=== PATIENT | female | born 1975 | race Caucasian/White ===

== ENCOUNTER → 2018-03-10 14:47 | Outpatient (CLI) | payer OTHER, SELFPAY ==
[2018-02-20 10:43] VITALS: BMI 25.9
--- NOTE | 2018-03-10 14:48 | BI_ITS ---
MAMMOGRAPHY - BILATERAL SCREENING REASON FOR EXAM: Female, 42 years old. Routine annual screening examination. PERTINENT HISTORY: Non-contributory. TECHNIQUE: Digital bilateral breast rima (3D mammographic acquisition) in the CC and MLO projections. 2-D mediolateral oblique (MLO) and craniocaudad (CC) views of both breasts were obtained. CAD: Full Field Digital Mammography with Computer Added Detection was performed. COMPARISON: Comparison is made with prior study dated August 12, 2016 and August 01, 2014. FINDINGS: Breast Composition: The breasts are heterogeneously dense, which may obscure small masses. There are no dominant masses or suspicious calcifications. Stable bilateral axillary lymph nodes. No other significant abnormalities are identified. There has been no significant change since the prior study. BI/SCREENING MAMM (CAD), BILAT IMPRESSION: Stable bilateral screening mammogram. Yearly follow-up mammogram recommended. (A) ASSESSMENT CATEGORY: BIRADS Category 2: Benign. A letter regarding these results will be sent to the patient by the facility within 30 days. Approximately 10% of breast cancers are not detected by mammography. A normal mammogram should not delay biopsy of a clinically suspicious abnormality. [id number] Electronically Signed: Ovidio Vaughan MD at 15:52 EST Tel [phone], Service support ,
--- OUTSIDE RECORDS SUMMARY | 2018-05-05 14:11 | XMS RPT_ITS ---
:1975 Author Organization [facility] Care Team Providers Name Role Phone Suman Contreras Attending Unavailable Beny Quigley Referring Unavailable Beny Quigley Primary Care Unavailable Umair Arias Attending Unavailable Umair Arias Referring Unavailable Beny Quigley Primary Care Unavailable Abdirizak Pritchard Attending Unavailable Beny Quigley Referring Unavailable PROBLEMS PROBLEMS DATE TYPE CONDITION / CODE ATTENDING STATUS SOURCE 02/20/2018 Unknown J32.9 - Chronic Abdirizak Pritchard Active [facility] sinusitis, Community unspecified / Hospital J32.9(ICD-10) Repository 05/27/2017 Unknown H60.90 - Suman Contreras Active [facility] otitis externa, Hospital unspecified ear / Repository H60.90(ICD-10) 05/27/2017 Unknown H60.313 - Diffuse Suman Contreras Active [facility] otitis externa, Community bilateral / Hospital H60.313(ICD-10) Repository PROCEDURES PROCEDURES No Procedure Records FoundRESULTS RESULTS SCREENING MAMM (CAD), Observed: 03/10/2018 Status: F Source: [facility] BILAT 2:48 PM [facility] REPOSITORY [facility] Imaging Services [address] [place] [address] SCREENING MAMM (CAD), BILAT MR#: [id number] Acct: [id number] Name: MAEVE WELLS Rep #: [id number] : 1975 F 42 From: Ovidio Vaughan MD PCP: Beny Quigley MD Status: [facility] Study: SCREENING MAMM (CAD), BILAT Date of Exam: 03/10/18 Exam# [id number] Ordering Dr: Umair Arias MD MAMMOGRAPHY - BILATERAL SCREENING REASON FOR EXAM: Female, 42 years old. Routine annual screening examination. PERTINENT HISTORY: Non-contributory. TECHNIQUE: Digital bilateral breast rima (3D mammographic acquisition) in the CC and MLO projections. 2-D mediolateral oblique (MLO) and craniocaudad (CC) views of both breasts were obtained. CAD: Full Field Digital Mammography with Computer Added Detection was performed. COMPARISON: Comparison is made with prior study dated August 12, 2016 and August 01, 2014. FINDINGS: Breast Composition: The breasts are heterogeneously dense, which may obscure small masses. There are no dominant masses or suspicious calcifications. Stable bilateral axillary lymph nodes. No other significant abnormalities are identified. There has been no significant change since the prior study. BI/SCREENING MAMM (CAD), BILAT IMPRESSION: Stable bilateral screening mammogram. Yearly follow-up mammogram recommended. (A) ASSESSMENT CATEGORY: BIRADS Category 2: Benign. A letter regarding these results will be sent to the patient by the facility within 30 days. Approximately 10% of breast cancers are not detected by mammography. A normal mammogram should not delay biopsy of a clinically suspicious abnormality. [id number] Electronically Signed: Ovidio Vaughan MD at 15:52 EST Tel [phone], Service support , CC: Umair Arias MD; Beny Quigley MD Supervisor Twisting Department: Signed URGENT CARE VISIT Observed: 02/20/2018 Status: F Source: [facility] REPORT 10:59 AM [facility] [address] [place] [address] [address] [place] [address] OFFICE VISIT Date of Service: 02/20/18 MR#: [id number] Acct: [id number] Name: MAEVE WELLS Rep #: [id number] : 1975 Provider: Abdirizak GUADALUPE Age/Sex: 42/F Location: [facility] Status: Signed Intake Vital Signs02/20/18 Height 5 ft 1 in Intake Visit Reasons: Cough Chief Complaint: Facial pressure, postnasal drip, hoarse voice, cough Allergies No Known Allergies Allergy (Unverified 02/20/18 10:44) Medications amoxicillin 500 mg capsule 1,000 mg PO BID 10 Days #40 cap 02/20/18 [Rx Confirmed 02/20/18] loratadine 10 mg tablet 10 mg PO DAILY 02/20/18 [History Confirmed 02/20/18] multivitamin capsule 1 cap PO DAILY 02/20/18 [History Confirmed 02/20/18] valacyclovir 1 gram tablet PO 4 Days #12 tab 02/20/18 [History Confirmed 02/20/18] [facility] Medical History Melanoma (Acute) Surgical History [place] teeth extracted (Acute) D AND C (Acute) History of tonsillectomy (Acute) Hx of section (Acute) Family History Other Diabetes Social History Smoking Status: Never smoker alcohol intake: never HPI HPI Chief Complaint: Facial pressure, postnasal drip, hoarse voice, cough Details: MAEVE WELLS, is a 42 F who presents to the office today for initial evaluation approximately 2-3-week history of progressively worsening facial pressure, postnasal drip, hoarse voice, cough. Additionally, she notes occasional chills particularly over the last 3-5 days, though no complaints of fever, sweats, rash, chest pain/shortness of breath/difficulty breathing. She is a non-smoker, noting no other members in household with similar complaints. She has tried [id number]-fxd-[id number] Claritin to assist with symptoms, noting this no longer helps. She notes no other associated symptoms and no other alleviating or aggravating factors. ROS Const Constitutional: No other (ROS negative x10 other than as noted above) Exam Const General: cooperative, healthy appearing, no acute distress, uncomfortable Nutritional Appearance: average body habitus Orientation: alert, awake, oriented x3 HENMT Head: normal to inspection Ears: hearing grossly normal bilaterally, external ears normal, TM's normal bilaterally, EAC's normal Nose: external nose normal, nares normal, septum normal, no nasal discharge Face and sinus: normal facial exam, face symmetric, sinus tenderness frontal Mouth: oral mucosae normal, lip normal, tongue normal Teeth and gingiva: gingiva normal, dentition normal Throat: uvula midline, posterior oropharynx normal, postnasal drainage (Purulent) Eyes General: appearance normal, both eyes and all related structures Neck Neck: normal visual inspection, full ROM, no meningeal signs, supple, lymphadenopathy (Bilateral anterior cervical node swelling, nontender to palpation) Neck mass: No Thyroid: thyroid normal Chest Chest palpation AND inspection: normal inspection of the chest Resp Effort AND Inspection: normal respiratory effort, able to speak in complete sentences, symmetric chest movement, no cough (No cough appreciated during today's exam) Auscultation: Bilateral: Clear to Auscultation Cardio Palpation: normal PMI Rate: regular rate Rhythm: regular rhythm Heart Sounds: S1 normal, S2 normal, no gallops, no murmurs, no rubs Pulses: radial pulses present GI Inspection: normal to inspection Palpation: soft, no hepatosplenomegaly Skin General: no rashes or lesions noted Neuro General: alert, awake, oriented x3, gait normal Cognition: normal cognition Speech: speech normal Gait: normal gait Motor: muscle tone normal throughout Sensory Exam: no sensory deficits noted Psych Appearance: grossly normal Mental Status: mental status grossly normal Mood: congruent mood Affect: normal affect Speech and Movement: speech and movement normal Attitude: cooperative Thought Process: normal Thought Content: normal Judgment: judgment good Assessment AND Plan Problems 1. Sinusitis J32.9 Plan Amoxicillin as prescribed today. Clear fluids, rest, Advil/Tylenol, warm facial compresses as needed as instructed today. Avoid tobacco smoke exposure. Follow-up with PCP in 3-5 days should symptoms not improved, sooner should symptoms worsen or any other concerns develop. Patient states acknowledging understanding all the above. This note was generated with [employer] dictation software. It may contain incorrect words, spelling, and punctuation that were not noted in checking the note before signing. Medications New: Coding Level of Care Code Off vis,est,level 3 Diagnoses Sinusitis J32.9 02/20/18 1059 <Electronically signed by Abdirziak GUADALUPE> Date Abdirizak GUADALUPE Cosigner Signature: Date (if applicable) CC: URGENT CARE VISIT Observed: 05/27/2017 Status: F Source: [place] REPORT 2:27 PM [facility]ITORY [facility] [address] [place], [place] [id number] OFFICE VISIT Date of Service: 05/27/17 MR#: [id number] Acct: [id number] Name: MAEVE WELLS Rep #: [id number] : 1975 Provider: Suman GUADALUPE Age/Sex: 41/F Location: [facility] [place] Status: Signed Intake Vital Signs05/27/17 Height 5 ft 05/27/17 Weight: 132 lb 05/27/17 Body Mass Index (BMI) 25.7 05/27/17 Blood Pressure 104/62 05/27/17 Blood Pressure Location Lt brachial 05/27/17 Blood Pressure Position Sitting Intake Visit Reasons: EAR ACHE Is patient in pain?: Yes Allergies No Known Allergies Allergy (Unverified 05/27/17 14:08) Medications ofloxacin 0.3 % ear drops 10 drp OTIC QDAY 7 Days #10 ml 05/27/17 [Rx Confirmed 05/27/17] PFSH Medical History Melanoma (Acute) Surgical History D AND C (Acute) History of tonsillectomy (Acute) Hx of section (Acute) Social History Smoking Status: Never smoker alcohol intake: never HPI HPI Details: MAEVE WELLS, is a 41 F who presents to the office today for bilateral ear pain and itching with right being worse than left. Patient states that she has had this pain for the past 2-3 days and has been using Q-tips on both of the ears. She denies hearing change or loss. No otorrhea. No fever, chills, sweats. No nausea, vomiting, diarrhea. No other associated symptoms or alleviating/aggravating factors. ROS Const Constitutional: No chills, fever(s), fatigue or abnormal sleep pattern ENT ENT: Positive for ear pain; no ear discharge, nasal congestion, nasal discharge or sore throat Resp Respiratory: No shortness of breath or chest congestion Cardio Cardiology: No chest pain at rest, chest pain with exertion or shortness of breath Skin Skin: No wounds or lesions Neuro Neurology: No behavioral changes or confusion Psych Psychiatric: No behavioral changes, No confusion, No abnormal sleep pattern Endo Endocrine: No fatigue Exam Const General: cooperative, healthy appearing [facility] Head: normocephalic, atraumatic Ears: hearing grossly normal bilaterally, EAC abnormal erythema bilaterally, edema on the right and EAC tenderness on the right Nose: external nose normal Face and sinus: face symmetric, normal facial exam Throat: posterior oropharynx normal Eyes General: appearance normal, both eyes and all related structures Pupils: PERRL Resp Effort AND Inspection: normal respiratory effort Auscultation: Bilateral: Clear to Auscultation Cardio Rate: regular rate Rhythm: regular rhythm Heart Sounds: S1 normal, S2 normal Skin General: no rashes or lesions noted Neuro General: alert, CN's II-XI intact bilaterally Psych Appearance: grossly normal Mental Status: mental status grossly normal Assessment AND Plan Problems 1. Acute diffuse otitis externa of both ears H60.313 Status Acute Plan Encouraged to get plenty of rest, drink lots of clear liquids, and use Tylenol or Ibuprofen (unless contraindicated) for fever and comfort. Patient also educated on other symptomatic management techniques. To be seen in 7-10 days if no improvement; sooner if worsening of symptoms. Patient advised of potential red flags when appropriate report to the ED. Patient verbalized understanding of all the above. This note was generated with [employer] dictation software. It may contain incorrect words, spelling, and punctuation that were not noted in checking the note before signing. Medications New: Coding Level of Care Code Off vis,new,level 3 Diagnoses Acute diffuse otitis externa of both ears H60.313 Otitis externa type: diffuse Chronicity: acute Laterality: bilateral 05/27/17 1427 <Electronically signed by Suman GUADLAUPE> Date Suman GUADALUPE Cosigner Signature: Date (if applicable) CC: ALLERGIES ALLERGIES DATE TYPE / CODE NAME / CODE REACTION SEVERITY SOURCE 02/20/2018 Drug No Known Unknown [facility] Allergy/4160 Allergies/F00 Hospital 22984(SNOMED [id number](RXNOR Repository CT) M) ENCOUNTERS ENCOUNTERS ADMIT/DISCHARGE ACCOUNT ADMITTING ENCOUNTER LOCATION SOURCE NUMBER CLASS 03/10/2018 [id number] Ambulatory [facility] ing:OPBI Repository 02/20/2018/ [id number] Ambulatory [facility]Building:[facility] [place] Repository 05/27/2017/ [id number] Ambulatory BMSBuilding:[facility] [address] 4 [place] Repository PAYERS PAYERS ENCOUNTER GUARANTOR PAYER SUBSCRIBER SOURCE 03/10/2018 MAEVE [id number] Primary MAEVE CASTROB: [place] [address] [facility] Insurance:[facility]ICAL [id number] [address]Exx: [phone] Number: Repository [phone] (XX) [id number] Date:[id number] [place] [id number]: 03/10/2018 Secondary NOT GIVENUNK [facility] Insurance:SELF PAY [facility] Number: Effective Repository Date:2017-12-29 02/20/2018 MAEVE Han [id number] Primary MAEVE CASTROB: [facility] Insurance:MEDICAL [id number] [address]Igb: (330) Number: Repository [phone] () [id number] Date:3356-06-19[address], [place] [address]SV: 02/20/2018 Secondary NOT GIVENUNK [facility] Insurance:SELF PAY [facility] Number: Effective Repository Date:2018-02-20 05/27/2017 MAEVE [id number] W Primary Insurance:[facility] MAEVE BAEZA: [place] [facility] [id number] [id number]: [phone]) Number: Repository [phone] () [id number] Date:[id number] [address]QF: CHECK WEBSITE 05/27/2017 Secondary NOT GIVENUNK [facility] Insurance:SELF PAY [facility] Number: Effective Repository Date:2017-05-27
== END ==
PROVIDERS: Family Provider Family Medicine; PCP Family Medicine; Referring Provider Obstetrics & Gynecology; Visit Provider Obstetrics & Gynecology
DX: Z12.31 Encounter for screening mammogram for malignant neoplasm of breast (principal)
CPT/HCPCS: 77063; 77067

== ENCOUNTER → 2018-10-20 14:25 | Outpatient (CLI) | payer OTHER, SELFPAY ==
[2018-10-20 15:46] LABS: Absolute Lymphocyte Count 1.83 X10^3/ul (0.83-4.51); Absolute Neutrophil Count 4.4 X10^3/uL (2.0-7.7); Basophil# 0.05 X10^3/uL; Basophil% 0.7 % (0-1); Eosinophil# 0.48 X10^3/uL; Eosinophils% 6.6 % (0-5); Hematocrit 38.9 % (37-47); Lymphocyte # 1.83 X10^3/ul (4.0); Lymphocyte % 25.2 % (19-41); Mean Corpuscular Hgb 31.6 pg (27.0-32.0); Mean Corpuscular Volume 87.8 fL (81-99); Mean Platelet Vol. 10.4 fl (6.2-12.0); Monocyte# 0.53 X10^3/uL; Monocyte% 7.3 % (0-10); Neutrophil # 4.37 X10^3/uL (2.7-7.7); Neutrophil % 60.1 % (47-70); Platelet Count 255 K/mm3 (150-450); RBC Distribution Width CV 11.2 % (11.6-14.6); Red Blood Count 4.43 M/mm3 (4.2-5.4); White Blood Count 7.3 K/mm3 (4.4-11.0)
[2018-10-20 15:53] LABS: POSITIVE COUNT NO; POSITIVE DIFFERENTIAL NO; POSITIVE MORPHOLOGY NO
[2018-10-20 16:04] LABS: Erythrocyte Sedimentation Rate < 1 mm/hr (0-20)
[2018-10-20 16:16] LABS: ALB/GLOB Ratio 1.3 RATIO (0.9-2.4); AST(SGOT) 13 U/L (15-37); Alanine Aminotransfer ALT/SGPT 28 U/L (13-56); Albumin, Serum 3.9 g/dL (3.2-5.0); Alkaline Phosphatase 61 U/L (45-117); Anion Gap 8 (5-15); BUN 15 mg/dL (7-18); BUN/Creat Ratio 20.6 RATIO (10-20); CRP < 2.90 mg/L (0.0-3.0); Calcium,Total 8.9 mg/dL (8.5-10.1); Chloride 104 mmol/L (98-107); Creatinine, Serum 0.73 mg/dL (0.55-1.02); EST Glomerular Filtration Rate 93 mL/min (>60); Est Glom Filt Rate - Afr Amer 113 mL/min (>60); Globulin 3.1 g/dL (2.2-4.2); Glucose 91 mg/dL (74-106); Lipase 171 U/L (73-393); Potassium 3.5 mmol/L (3.5-5.1); Sodium Level 141 mmol/L (136-145)
[2018-10-23 16:07] LABS: Endomysial Antibody IgA Negative (Negative)
[2018-10-24 12:29] LABS: Immunoglobulin A 206 mg/dL (87-352); t-Transglutaminase IgA <2 U/mL (0-3)
== END ==
PROVIDERS: Family Provider Family Medicine; PCP Family Medicine; Visit Provider Family Medicine
DX: R10.9 Unspecified abdominal pain (principal); R19.7 Diarrhea, unspecified
CPT/HCPCS: 36415; 80053; 82784; 83516; 83690; 85025; 85652; 86140; 86255

== ENCOUNTER → 2019-02-07 14:17 | Outpatient (CLI) | payer OTHER, SELFPAY ==
[2018-02-20 10:43] VITALS: BMI 25.9
[2019-02-12 18:52] LABS: HPV Reflexed? NOT INDICATED
== END ==
PROVIDERS: Referring Provider Obstetrics & Gynecology; Visit Provider Obstetrics & Gynecology
DX: Z12.4 Encounter for screening for malignant neoplasm of cervix (principal)
CPT/HCPCS: 88175; G0145

== ENCOUNTER → 2019-03-19 08:45 | Outpatient (CLI) | payer OTHER, SELFPAY ==
--- NOTE | 2019-03-19 08:49 | BI_ITS ---
MAMMOGRAPHY - BILATERAL SCREENING REASON FOR EXAM: Female, 43 years old. Routine annual screening examination. PERTINENT HISTORY: Non-contributory. TECHNIQUE: Digital bilateral breast kelley (3D mammographic acquisition) in the CC and MLO projections. 2-D mediolateral oblique (MLO) and craniocaudad (CC) views of both breasts were obtained. CAD: Full Field Digital Mammography with Computer Added Detection was performed. COMPARISON: Comparison is made with prior ocular examination dated March 10, 2018 FINDINGS: Breast Composition: The breasts are extremely dense, which lowers the sensitivity of mammography. There are no dominant masses or suspicious calcifications. Stable small benign-appearing bilateral axillary lymph nodes. No other significant abnormalities are identified. There has been no significant change since the prior study. BI/SCREEN MAMM (CAD) W/KELLEY BILAT IMPRESSION: Stable bilateral screening mammogram. Yearly follow-up mammogram recommended. (A) ASSESSMENT CATEGORY: BIRADS Category 2: Benign. A letter regarding these results will be sent to the patient by the facility within 30 days. Approximately 10% of breast cancers are not detected by mammography. A normal mammogram should not delay biopsy of a clinically suspicious abnormality. [id number] Electronically Signed: Ovidio Vaughan, at 10:31 EST , Service support ,
== END ==
PROVIDERS: Family Provider Family Medicine; PCP Family Medicine; Referring Provider Obstetrics & Gynecology; Visit Provider Obstetrics & Gynecology
DX: Z12.31 Encounter for screening mammogram for malignant neoplasm of breast (principal)
CPT/HCPCS: 77063; 77067

== ENCOUNTER → 2020-02-22 10:23 | Outpatient (CLI) | payer OTHER, SELFPAY ==
[2019-05-20 10:10] VITALS: BMI 25.9
[2020-02-27 07:29] LABS: SARS-COV-2 TOTAL ABS Nonreactive (Nonreactive)
== END ==
PROVIDERS: PCP Family Medicine; Visit Provider Family Medicine
DX: Z03.818 Encounter for observation for suspected exposure to other biological agents ruled out (principal)
CPT/HCPCS: 36415; 86769

== ENCOUNTER → 2020-04-23 | Outpatient (CLI) | payer OTHER, SELFPAY ==
[2019-05-20 10:10] VITALS: BMI 25.9
[2020-04-25 12:26] LABS: HPV Reflexed? NOT INDICATED
== END | disposition home or self-care (01) ==
LOC: LABSPEC 13:32
PROVIDERS: PCP Family Medicine; Visit Provider Obstetrics & Gynecology
DX: Z12.4 Encounter for screening for malignant neoplasm of cervix (principal)
CPT/HCPCS: 88175; G0145

== ENCOUNTER → 2020-05-28 12:28 | Outpatient (CLI) | payer OTHER, SELFPAY ==
[2019-05-20 10:10] VITALS: BMI 25.9
--- NOTE | 2020-05-28 12:29 | BI_ITS ---
MAMMOGRAPHY - BILATERAL SCREENING REASON FOR EXAM: Female, 44 years old. Routine annual screening examination. PERTINENT HISTORY: Non-contributory. TECHNIQUE: Digital bilateral breast kelley (3D mammographic acquisition) in the CC and MLO projections. 2-D mediolateral oblique (MLO) and craniocaudad (CC) views of both breasts were obtained. CAD: Full Field Digital Mammography with Computer Added Detection was performed. COMPARISON: Comparison is made with prior study dated 03/19/2019. FINDINGS: Breast Composition: The breasts are extremely dense, which lowers the sensitivity of mammography. There are no dominant masses or suspicious calcifications. Stable small benign-appearing bilateral axillary lymph nodes. No other significant abnormalities are identified. There has been no significant change since the prior study. BI/SCRN MAMM (CAD)W/KELLEY BILAT IMPRESSION: Stable bilateral screening mammogram. Yearly follow-up mammogram recommended. (A) ASSESSMENT CATEGORY: BIRADS Category 2: Benign. A letter regarding these results will be sent to the patient by the facility within 30 days. Approximately 10% of breast cancers are not detected by mammography. A normal mammogram should not delay biopsy of a clinically suspicious abnormality. [id number] Electronically Signed: Ovidio Vaughan MD at 13:50 EST , Service support ,
== END ==
PROVIDERS: PCP Family Medicine; Referring Provider Obstetrics & Gynecology; Visit Provider Obstetrics & Gynecology
DX: Z12.31 Encounter for screening mammogram for malignant neoplasm of breast (principal)
CPT/HCPCS: 77063; 77067

== ENCOUNTER 2021-06-12 12:07 | Outpatient (CLI) | payer OTHER, SELFPAY ==
--- NOTE | 2021-06-12 12:09 | BI_ITS ---
MAMMOGRAPHY - BILATERAL SCREENING REASON FOR EXAM: Female, 45 years old. Routine annual screening examination. PERTINENT HISTORY: Non-contributory. TECHNIQUE: Digital bilateral breast kelley (3D mammographic acquisition) in the CC and MLO projections. 2-D mediolateral oblique (MLO) and craniocaudad (CC) views of both breasts were obtained. CAD: Full Field Digital Mammography with Computer Added Detection was performed. COMPARISON: Comparison is made with prior study dated 05/28/2020. FINDINGS: Breast Composition: The breasts are extremely dense, which lowers the sensitivity of mammography. There are no dominant masses or suspicious calcifications. Stable small benign-appearing bilateral axillary lymph nodes. No other significant abnormalities are identified. There has been no significant change since the prior study. BI/SCRN MAMM (CAD)W/KELLEY BILAT IMPRESSION: Stable bilateral screening mammogram. Yearly follow-up mammogram recommended. (A) ASSESSMENT CATEGORY: BIRADS Category 2: Benign. A letter regarding these results will be sent to the patient by the facility within 30 days. Approximately 10% of breast cancers are not detected by mammography. A normal mammogram should not delay biopsy of a clinically suspicious abnormality. [id number] Electronically Signed: Ovidio Vaughan MD at 13:06 EST ,
== END 2021-06-12 23:59 | disposition home or self-care (01) ==
LOC: OPBI 12:08
PROVIDERS: PCP Family Medicine; Visit Provider Obstetrics & Gynecology
DX: Z12.31 Encounter for screening mammogram for malignant neoplasm of breast (principal)
CPT/HCPCS: 77063; 77067

== ENCOUNTER → 2022-01-22 | Outpatient (CLI) | payer OTHER, SELFPAY ==
[2022-01-22 12:50] LABS: Anion Gap 5 (5-15); BUN 17 mg/dL (7-18); BUN/Creat Ratio 22.1 RATIO (10-20); Calcium,Total 8.8 mg/dL (8.5-10.1); Chloride 107 mmol/L (98-107); Cholesterol 169 mg/dL (200); Creatinine, Serum 0.77 mg/dL (0.55-1.02); EST Glomerular Filtration Rate 86 mL/min (>60); Est Glom Filt Rate - Afr Amer 104 mL/min (>60); Glucose 105 mg/dL (74-106); High Density Lipoprotein 59 mg/dL; Potassium 4.1 mmol/L (3.5-5.1); Sodium Level 139 mmol/L (136-145); T4 Free Direct 1.13 ng/dL (0.76-1.46); Thyroid Stim Hormone (TSH) 0.83 uIU/mL (0.358-3.74); Triglycerides 58 mg/dL; Very Low Density Lipoprotein 12 mg/dL (5-40)
== END | disposition home or self-care (01) ==
LOC: BFHLAB 10:28
PROVIDERS: PCP Family Medicine; Visit Provider Family Medicine
DX: E87.6 Hypokalemia (principal); F41.9 Anxiety disorder, unspecified; R73.01 Impaired fasting glucose
CPT/HCPCS: 36415; 80048; 80061; 84439; 84443

== ENCOUNTER → 2022-06-14 | Outpatient (CLI) | payer OTHER, SELFPAY ==
--- NOTE | 2022-06-14 13:44 | BI_ITS ---
MAMMOGRAPHY - BILATERAL SCREENING REASON FOR EXAM: Female, 46 years old. Routine annual screening examination. PERTINENT HISTORY: Non-contributory. TECHNIQUE: Digital bilateral breast kelley (3D mammographic acquisition) in the CC and MLO projections. 2-D mediolateral oblique (MLO) and craniocaudad (CC) views of both breasts were obtained. CAD: Full Field Digital Mammography with Computer Added Detection was performed. COMPARISON: Comparison is made with prior study of June 12, 2021 and 06/25/2020. FINDINGS: Breast Composition: The breasts are extremely dense, which lowers the sensitivity of mammography. There are no dominant masses or suspicious calcifications. Stable small benign-appearing bilateral axillary lymph nodes. No other significant abnormalities are identified. There has been no significant change since the prior study. BI/SCRN MAMM (CAD)W/KELLEY BILAT IMPRESSION: Stable bilateral screening mammogram. Yearly follow-up mammogram recommended. (A) ASSESSMENT CATEGORY: BIRADS Category 2: Benign. A letter regarding these results will be sent to the patient by the facility within 30 days. Approximately 10% of breast cancers are not detected by mammography. A normal mammogram should not delay biopsy of a clinically suspicious abnormality. [id number] Electronically Signed: Ovidio Vaughan MD at 15:28 EST ,
== END | disposition home or self-care (01) ==
LOC: OPBI 13:41
PROVIDERS: PCP Family Medicine; Visit Provider Family Medicine
DX: Z12.31 Encounter for screening mammogram for malignant neoplasm of breast (principal)
CPT/HCPCS: 77063; 77067

== ENCOUNTER → 2022-11-08 | Outpatient (CLI) | payer OTHER, SELFPAY ==
[2022-11-11 22:07] LABS: HPV APTIMA, High Risk Negative (Negative)
== END | disposition home or self-care (01) ==
PROVIDERS: PCP Internal Medicine; Visit Provider Obstetrics & Gynecology
DX: Z12.4 Encounter for screening for malignant neoplasm of cervix (principal)
CPT/HCPCS: 87624; 88175; G0145

== ENCOUNTER → 2023-05-13 | Outpatient (CLI) | payer OTHER, SELFPAY ==
[2023-05-13 10:55] LABS: Absolute Lymphocyte Count 1.52 X10^3/uL (0.83-4.51); Absolute Neutrophil Count 2.9 X10^3/uL (2.0-7.7); Basophil# 0.05 X10^3/uL; Eosinophil# 0.13 X10^3/uL; Eosinophils% 2.6 % (0-5); Hematocrit 36.9 % (37-47); Lymphocyte # 1.52 X10^3/ul (0.83-4.51); Lymphocyte % 30.9 % (19-41); Mean Corp Hgb Conc 32.5 g/dL (32-36); Mean Corpuscular Hgb 28.4 pg (27.0-32.0); Mean Corpuscular Volume 87.2 fL (81-99); Monocyte# 0.35 X10^3/uL; Monocyte% 7.1 % (0-10); NRBC Flagged by Analyzer 0 % (0-5); Neutrophil # 2.85 X10^3/uL (2.7-7.7); Platelet Count 274 K/mm3 (150-450); RBC Distribution Width CV 11.9 % (11.6-14.6); RBC Distribution Width SD 37.7 fl (35.1-43.9); Red Blood Count 4.23 M/mm3 (4.2-5.4); White Blood Count 4.9 K/mm3 (4.4-11.0)
[2023-05-13 11:23] LABS: ALB/GLOB Ratio 1.1 RATIO (0.9-2.4); AST(SGOT) 9 U/L (15-37); Alanine Aminotransfer ALT/SGPT 18 U/L (13-56); Alkaline Phosphatase 58 U/L (45-117); Anion Gap 2 (5-15); BUN 17 mg/dL (7-18); BUN/Creat Ratio 19.7 RATIO (10-20); Chloride 107 mmol/L (98-107); Creatinine, Serum 0.86 mg/dL (0.55-1.02); EST Glomerular Filtration Rate 75 mL/min (>60); Est Glom Filt Rate - Afr Amer 91 mL/min (>60); Globulin 3.5 g/dL (2.2-4.2); Glucose 106 mg/dL (74-106); Potassium 3.6 mmol/L (3.5-5.1); Protein, Total 7.5 g/dL (6.4-8.2); Sodium Level 137 mmol/L (136-145); Thyroid Stim Hormone (TSH) 1.04 uIU/mL (0.358-3.74)
== END | disposition home or self-care (01) ==
PROVIDERS: PCP Internal Medicine
DX: R41.840 Attention and concentration deficit (principal)
CPT/HCPCS: 36415; 80053; 84443; 85025

== ENCOUNTER → 2023-06-17 | Outpatient (CLI) | payer OTHER, SELFPAY ==
--- NOTE | 2023-06-17 12:12 | BI_ITS ---
MAMMOGRAPHY - BILATERAL SCREENING 3-D TOMOSYNTHESIS REASON FOR EXAM: Female, 47 years old. breast cancer screening PERTINENT HISTORY: No significant family history. TECHNIQUE: 2-D mammograms and 3-D Tomosynthesis of the breast (s) were performed. CAD was performed. COMPARISON: 06/14/2022 FINDINGS: The breast composition is Extermely dense tissue. Scattered benign calcifications are seen. No dense spiculated masses or suspicious microcalcifications are identified. No architectural distortion is identified. There is no skin thickening or retraction. There has been no significant change since the prior study. BI/SCRN MAMM (CAD)W/KELLEY BILAT IMPRESSION: No mammographic signs of malignancy. Routine yearly mammograms recommended. ASSESSMENT CATEGORY: BIRADS Category 1: Negative. A letter regarding these results will be sent to the patient by the facility within 30 days. FOLLOW UP RECOMMENDATION: Yearly follow up mammogram recommended. (A) Approximately 10% of breast cancers are not detected by mammography. A normal mammogram should not delay biopsy of a clinically suspicious abnormality. Electronically Signed: Jay Duran MD at 14:18 EST ,
== END | disposition home or self-care (01) ==
LOC: OPBI 12:08
PROVIDERS: PCP Internal Medicine; Referring Provider Obstetrics & Gynecology; Visit Provider Obstetrics & Gynecology
DX: Z12.31 Encounter for screening mammogram for malignant neoplasm of breast (principal)
CPT/HCPCS: 77063; 77067

== ENCOUNTER → 2024-05-07 | Outpatient (CLI) | payer OTHER, SELFPAY ==
--- NOTE | 2024-05-07 18:02 | US_ITS ---
EXAM: US PELVIS TRANSABDOMINAL AND TRANSVAGINAL, COMPLETE CLINICAL INDICATION: AUB TECHNIQUE: Transabdominal and transvaginal pelvic ultrasound was performed with grayscale and color Doppler imaging. Transvaginal imaging was used for better evaluation of the endometrium and adnexa. COMPARISON: No relevant prior studies available. FINDINGS: UTERUS/CERVIX: 7.9 cm x 3.7 cm x 6 cm transverse. Anteverted. Exophytic 1.7 cm x 1.3 cm x 1.7 cm posterior heterogeneous presumed fibroid with sessile base. Normal 8.1 mm endometrial stripe thickness. Nabothian cervical cysts, the largest 1.3 cm. RIGHT OVARY: 3 cm x 1.9 cm x 4.6 cm. There is complete minimally thick-walled dominant follicle of 2.3 cm x 1.5 cm x 1.6 cm, almost completely anechoic. Non-enlarged, normal echogenicity. Blood flow is present in the right ovary. LEFT OVARY: Unremarkable. 3.7 cm x 1.8 cm x 2.9 cm. Non-enlarged, normal echogenicity. Blood flow is present in the left ovary. FREE FLUID: None. BLADDER: Unremarkable as visualized. Wall is normal thickness for degree of distention. Calculated volume 149 cc. 7.8 cm x 5.2 cm x 7 cm. US/Pelvic w/ Transvaginal IMPRESSION: Small exophytic presumed uterine fibroid. No significant endometrial thickening for the patient''s stated age and presumed premenopausal-perimenopausal status. 2.3 cm dominant right ovarian follicle. Electronically Signed: Lacey Casper MD at 3:02 EST ,
== END | disposition home or self-care (01) ==
LOC: US 18:00
PROVIDERS: PCP Internal Medicine; Referring Provider Obstetrics & Gynecology; Visit Provider Obstetrics & Gynecology
DX: N93.9 Abnormal uterine and vaginal bleeding, unspecified (principal)
CPT/HCPCS: 76830; 76856

== ENCOUNTER → 2024-06-18 | Outpatient (CLI) | payer OTHER, SELFPAY ==
--- NOTE | 2024-06-18 09:45 | BI_ITS ---
PROCEDURE: SCRN MAMM (CAD)W/KELLEY BILAT REASON FOR EXAM: F, Age 48 y/o, routine follow-up. No family history. TECHNIQUE: Bilateral screening digital breast tomosynthesis with 2D and 3D images. Computer aided detection. COMPARISON: Prior exam(s) dating back to June 17, 2023.. FINDINGS: The breasts are extremely dense which lowers the sensitivity of mammography. Small bilateral axillary lymph nodes. No suspicious masses, areas of developing architectural distortion, or suspicious calcifications. Stable examination. BI/SCRN MAMM (CAD)W/KELLEY BILAT IMPRESSION: BI-RADS 2: BENIGN. RECOMMEND ANNUAL MAMMOGRAPHIC SCREENING. Follow-up code: Routine Follow-up The patient will be notified of the results by letter. Reading Location: [place] [address]
== END | disposition home or self-care (01) ==
LOC: OPBI 10:00
PROVIDERS: PCP Internal Medicine; Referring Provider Obstetrics & Gynecology; Visit Provider Obstetrics & Gynecology
DX: Z12.31 Encounter for screening mammogram for malignant neoplasm of breast (principal)
CPT/HCPCS: 77063; 77067